=== PATIENT | female | born 2000 | race Caucasian/White ===

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

== ENCOUNTER 2020-07-17 16:18 | Emergency (ER) | payer OTHER ==
[~2020-07-17] VITALS: Wt 51.3 kg
[2020-07-17 16:31] VITALS: BP 126/76
[2020-07-17 17:55] LABS: BASO % 0.4 % (0.0-1.0); EOS # 0.2 10*3/uL (0.0-0.4); EOS % 1.9 % (1.0-4.0); HEMATOCRIT 40.3 % (37.0-47.0); LYMPH # 2.9 10*3/uL (1.3-4.4); LYMPH % 28.2 % (27.0-41.0); MEAN CORPUSCULAR HGB 30.4 pg (27.0-31.0); MEAN PLATELET VOLUME 9.4 fl (9.6-12.3); MONO # 0.7 10*3/uL (0.1-1.0); MONO % 6.4 % (3.0-9.0); NEUT # 6.4 10*3/uL (2.3-7.9); NEUT % 62.9 % (47.0-73.0); PLATELET COUNT AUTOMATED 290 10*3/uL (130-400); RED BLOOD COUNT 4.24 10*6/uL (4.10-5.10); RED CELL DISTRI WIDTH 12.6 % (0-14.5); WHITE BLOOD COUNT 10.2 10*3/uL (4.8-10.8)
[2020-07-17 18:13] LABS: ALBUMIN 3.2 gm/dl (3.1-4.5); ALKALINE PHOSPHATASE 48 U/L (45-117); BUN 14 mg/dl (7-24); CHLORIDE 110 mmol/L (98-107); CREATININE 0.87 mg/dL (0.55-1.02); POTASSIUM 3.6 mmol/L (3.5-5.1); SGOT/AST 11 IU/L (3-35); SGPT/ALT 15 U/L (12-78); SODIUM 139 mmol/L (136-145); TOTAL PROTEIN 7.1 gm/dL (6.4-8.2)
[2020-07-17 18:14] LABS: BETA-HCG, QUANT < 1.0 mIU/mL (1-3); TROPONIN I < 0.015 ng/ml (<0.045)
[2020-07-17 18:20] LABS: FREE T4 0.89 ng/dl (0.76-1.46); THYROID STIM HORMONE (HS) 1.18 uIU/ml (0.358-4.75)
[2020-07-17] MEDS ORDERED: NAPROSYN500 MG PO (20:15)
== END 2020-07-17 20:23 | disposition home or self-care (01) ==
LOC: ED 16:18
PROVIDERS: Family Medicine
DX: M54.2 Cervicalgia (principal); G89.29 Other chronic pain

== ENCOUNTER → 2021-11-17 | Outpatient (CLI) | payer OTHER ==
[~2021-11-17] MED LIST changes: +NAPROSYN500 MG PO
[2021-11-17 11:13] LABS: BASO % 0.3 % (0.0-1.0); BILIRUBIN Negative (Negative); BLOOD Negative (Negative); CLARITY Clear (Clear); COLOR Yellow (Yellow); EOS # 0.1 10*3/uL (0.0-0.4); GLUCOSE Negative (Negative); HEMATOCRIT 45.2 % (37.0-47.0); KETONE Negative (Negative); LEUKO ESTERASE Negative (Negative); LYMPH # 1.8 10*3/uL (1.3-4.4); LYMPH % 19.7 % (27.0-41.0); MEAN CELL VOLUME 94.8 fl (81.0-99.0); MEAN CORPUSCULAR HGB 30.8 pg (27.0-31.0); MEAN CORPUSCULAR HGB CONC 32.5 g/dl (33.0-37.0); MEAN PLATELET VOLUME 9.7 fl (9.6-12.3); MONO # 0.6 10*3/uL (0.1-1.0); MONO % 6.8 % (3.0-9.0); NEUT # 6.6 10*3/uL (2.3-7.9); NITRITE Negative (Negative); PH 7.5 (4.5-8.0); PLATELET COUNT AUTOMATED 306 10*3/uL (130-400); RED BLOOD COUNT 4.77 10*6/uL (4.10-5.10); SPECIFIC GRAVITY 1.025 (1.001-1.030); UROBILINOGEN 0.2 E.U./dl (0.0-1.0); WHITE BLOOD COUNT 9.1 10*3/uL (4.8-10.8)
[2021-11-17 11:36] LABS: BACTERIA 2+; MUCOUS 1+
[2021-11-17 11:37] LABS: RBC 0-2 rbc/hpf (0-2); WBC 0-2 wbc/hpf (0-5)
[2021-11-17 11:43] LABS: BUN 10 mg/dl (7-24); CHLORIDE 109 mmol/L (98-107); CHOLESTEROL 170 mg/dL (<200); POTASSIUM 4.1 mmol/L (3.5-5.1); SGPT/ALT 18 U/L (12-78); SODIUM 141 mmol/L (136-145)
[2021-11-17 11:49] LABS: ALKALINE PHOSPHATASE 60 U/L (45-117); CREATININE 0.79 mg/dL (0.55-1.02); FREE T4 1.04 ng/dl (0.76-1.46); LDL CHOLESTEROL 104 mg/dL (9-159); SGOT/AST 11 IU/L (3-35); THYROID STIM HORMONE (HS) 0.916 uIU/ml (0.358-4.75); TOTAL PROTEIN 7.7 gm/dL (6.4-8.2); TRIGLYCERIDES 69 mg/dl (<150)
[2021-11-17 12:05] LABS: VITAMIN D, 25-HYDROXY 63.6 ng/mL (30-100)
== END | disposition home or self-care (01) ==
LOC: LAB 10:42
PROVIDERS: ATTEND Internal Medicine
DX: Z13.0 Encounter for screening for diseases of the blood and blood-forming organs and certain disorders involving the immune mechanism (principal); Z13.228 Encounter for screening for other metabolic disorders; Z13.220 Encounter for screening for lipoid disorders; Z13.21 Encounter for screening for nutritional disorder; Z13.1 Encounter for screening for diabetes mellitus; E55.9 Vitamin D deficiency, unspecified; E03.9 Hypothyroidism, unspecified; R53.81 Other malaise; Z13.6 Encounter for screening for cardiovascular disorders; Z13.89 Encounter for screening for other disorder; R82.90 Unspecified abnormal findings in urine

== ENCOUNTER 2024-01-25 10:54 | Emergency (ER) | payer OTHER ==
[~2024-01-25] VITALS: Ht 157.4 cm; Wt 54.4 kg
[2024-01-25 10:58] VITALS: BP 113/79
[2024-01-25] MEDS ORDERED: Acetaminophen/Oxycodone 5 MG/325 MG TABLET PO ONE (11:00)
[2024-01-25] MEDS ORDERED: NORGESTIMATE-E1 EACH PO (11:05)
[2024-01-25] MEDS ORDERED: MELOXICAM15 MG PO (11:16)
== END 2024-01-25 11:36 | disposition home or self-care (01) ==
LOC: ED 10:54
DX: M54.6 Pain in thoracic spine (principal); M54.2 Cervicalgia; V89.2XXA Person injured in unspecified motor-vehicle accident, traffic, initial encounter; Y93.89 Activity, other specified; Y92.410 Unspecified street and highway as the place of occurrence of the external cause; Y99.8 Other external cause status